=== PATIENT | male | born 1990 | race Caucasian/White ===

== ENCOUNTER 2024-05-04 12:50 | Emergency (ER) | payer OTHER, SELFPAY ==
[2024-05-04 12:53] VITALS: BP 169/100
--- NOTE | 2024-05-04 13:08 | ED.GENMED ---
History of Present Illness
<Liz Johnson PA-C - Last Filed: 05/04/24 21:43>
General
Chief Complaint: Anal/Rectal Problem
Source: patient
Exam Limitations: none
Time Seen by Provider: 05/04/24 13:07
Nursing documentation reviewed up to this point in time: agreed with
History of Present Illness
History of Present Illness:
This is a 34-year-old male with no past medical history who presents emergency department today with concerns of pain near his rectum. Patient reports that this started around a week ago. Patient states that he thought was a hemorrhoid and that
would go away on its own. Patient states that the pain started increasing and he went to urgent care. He describes his symptoms to urgent care but did not examine him and gave him cream for hemorrhoid. Patient denies any rectal bleeding, drainage
from the rectum, any surrounding rashes. Patient denies any fevers or chills, any nausea or vomiting. 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 Patient is a past abdominal surgical history
of appendectomy. He denies abdominal pain today.
Review of Systems
<Liz Johnson PA-C - Last Filed: 05/04/24 21:43>
Review of Systems
All Other Systems: ROS reviewed and negative except as documented in HPI and ROS
Phy Exam
<Liz Johnson PA-C - Last Filed: 05/04/24 21:43>
Physical Exam
Physical Exam:
General: Patient is well appearing and in no acute distress; non-toxic
Skin: Warm and dry, erythema and induration noted to right gluteal fold
Head: Normocephalic, atraumatic
Eyes: Sclera non-icteric. EOMs intact. PERRLA.
Cardiac: Regular rate and rhythm
Pulm: Normal respiratory effort
Abdomen: No abdominal tenderness to palpation
Genitourinary: Perirectal abscess noted at the 9 o'clock position
Neuro: CN II-XII intact, no focal neurologic deficits.
Psychiatric: Appropriate mood and affect.
Course
<Liz Johnson PA-C - Last Filed: 05/04/24 21:43>
Orders/Labs/Results
Orders:
Orders
05/04/24 14:21
Acetaminophen [Tylenol] 1,000 mg PO NOW STA
Vital Signs
Initial and Last Documented VS:
Initial Vital Signs
Temp Pulse Resp BP Pulse Ox
98.3 F 98 16 169/100 98
05/04/24 12:53 05/04/24 12:53 05/04/24 12:53 05/04/24 12:53 05/04/24 12:53
Last Documented Vital Signs
Temp Pulse Resp BP Pulse Ox
98.3 F 95 18 135/100 96
05/04/24 12:53 05/04/24 14:32 05/04/24 14:32 05/04/24 14:32 05/04/24 14:32
<Evans Raza DO - Last Filed: 05/04/24 14:22>
Orders/Labs/Results
Orders:
Orders
05/04/24 14:21
Acetaminophen [Tylenol] 1,000 mg PO NOW STA
Vital Signs
Initial and Last Documented VS:
Initial Vital Signs
Temp Pulse Resp BP Pulse Ox
98.3 F 98 16 169/100 98
05/04/24 12:53 05/04/24 12:53 05/04/24 12:53 05/04/24 12:53 05/04/24 12:53
Last Documented Vital Signs
Temp Pulse Resp BP Pulse Ox
98.3 F 95 18 135/100 96
05/04/24 12:53 05/04/24 14:32 05/04/24 14:32 05/04/24 14:32 05/04/24 14:32
Procedures
<Liz Johnson PA-C - Last Filed: 05/04/24 21:43>
Incision/Drainage/Joint Aspiration
perirectal:
Anethesia: 1% Lidocaine with Epi
Preparation: cleaned with Betadine
Type of procedure: incise and drain
Nature of site: abscess
Description of abscess: greater than 3cm
Loculations broken up: No
How much fluid was obtained?: large amount
Fluid description: purulent
Treatment: left open for drainage
<Liz Johnson PA-C - Last Filed: 05/04/24 21:43>
MDM/Problems Addressed
Differential Diagnosis Includes:
see below
MDM/Problems Addressed:
NUMBER AND COMPLEXITY OF PROBLEMS ADDRESSED AT THE ENCOUNTER
� Chronic conditions affecting care: n/a
� Acute Exacerbation and/or Progression of Chronic Illness: n/a
� Differential Diagnosis includes: perirectal abscess, gluteal abscess, cellulitis, erysipelas
AMOUNT AND/OR COMPLEXITY OF DATA TO BE REVIEWED AND ANALYZED
� I performed an independent evaluation of and my interpretation is: no indication for imaging at this time
Laboratory Studies: no indication for blood work at this time
Other:
� Review of other/old records: no prior ER physician documentation, no prior discharge summaries to review
� Clinical information was obtained by an independent historian: none
� Prescriptions/Medications Considered but not given: n/a
� Further testing considered but not performed: n/a
RISK OF COMPLICATIONS AND/OR MORBIDITY OR MORTALITY OF PATIENT MANAGEMENT
� Social determinants of health affecting care: none
� Discussion with other providers: ER attending
� Escalation of care including admission/observation vs risk of discharge considered:
34-year-old male with no past medical history presents emergency department today with a perirectal abscess. He has no fevers or chills, no nausea or vomiting, he has a soft nontender abdomen. The abscess was incised and drained. There was
surrounding cellulitis around the abscess. Patient was started on Bactrim as well as Keflex to cover for strep and MRSA. Patient stable for discharge. I stressed the importance of following up with colorectal surgery for assessment and discussed
how these can sometimes track deeper. Return precautions discussed with patient.
<Liz Johnson PA-C - Last Filed: 05/04/24 21:43>
*Critical Care Note
Total Time (30-74mins, 75-104mins- exclusive of procedures): Not Applicable
ED Attending Note
<Liz Johnson PA-C - Last Filed: 05/04/24 21:43>
-
Portions of this chart may have been created with voice recognition software.� Occasional wrong word or��sound alike� substitutions may have occurred due to the inherent limitations of voice recognition software.
<Evans Raza DO - Last Filed: 05/04/24 14:22>
ED Attending Note
Patient seen and examined by attending physician: Yes
I performed the substantive portion of visit, reviewed & personally made and approve the management plan that is documented in note by myself or CAROL.: Yes
ED Attending Note:
I have seen and evaluated the patient with a [id number] encounter. I have spoken to the advance practicer provider and involved in the medical history, the physical exam, medical decision making.
Evaluation and management service: agree unless noted differently below.
Results interpretation: agree unless noted differently below.
Focused HPI: 34-year-old male presenting with left buttock pain. Denies fevers.
Physical exam: Patient has perirectal abscess. it does come to ahead just superior to the rectum along the right gluteal fold
Medical Decision Making: Will I&D and start antibiotics.
Discharge Plan
Departure
Patient Disposition: Home (Routine Discharge)
Date of Disposition: 05/04/24
Time of Disposition: 14:21
Patient with high blood pressure during this ER visit?: Yes
Condition: Good
Discharge Problem:
Perirectal abscess
Instructions: Anal abscess and fistula - Discharge instructions, BLOOD PRESSURE
Prescriptions:
New
sulfamethoxazole-trimethoprim [Bactrim DS] 800-160 mg tablet
1 tab PO BID 5 Days Qty: 10 0RF
cephalexin 500 mg capsule
500 mg PO TID 5 Days Qty: 15 0RF
Referrals:
Jovanni Santos MD [Active] - Call in 1-3 days for appt
UNKNOWN - PT DOES,NOT KNOW [Family Provider] -
Activity Restrictions/Additional Instructions:
Antibiotics have been sent to your pharmacy:
Keflex�please take 1 tablet 3 times daily for 5 days.
Bactrim DS- please take 1 tablet 2 times daily for 5 days.
You can alternate Tylenol and Motrin for pain. Also recommend taking a stool softener. The wound was left open so that it can continue to drain. You can change the dressing intermittently as needed with nonadherent padding.

Please call to make a follow up appointment with colorectal. Please say that you were seen in the emergency department for colorectal abscess and had it drained.
PLEASE RETURN EMERGENCY DEPARTMENT SHOULD YOU DEVELOP CHEST PAIN, SHORTNESS OF BREATH, SYNCOPAL EPISODES, ABDOMINAL PAIN, FEVERS GREATER THAN OR EQUAL TO 100.4 F, OR ANY OTHER SIGNS OR SYMPTOMS CONCERNING TO YOU.
Interventions
Interventions:
*Risk Screen - Suicide Last Done: 05/04/24 12:53
*General Assessment Last Done: 05/04/24 14:32
*Neglect/Abuse Screening Last Done: 05/04/24 12:53
ED- Fall Risk Assessment Last Done: 05/04/24 14:47
*ED COVID-19 Vaccine History Last Done: 05/04/24 14:32
*Nursing Disposition Last Done: 05/04/24 14:47
ED-Skin Assessment Last Done: 05/04/24 14:04
Discharge Date and Time
Discharge Date/Time: 05/04/24 14:47
Print Language: TELUGU
[2024-05-04 14:32] VITALS: BP 135/100
[2024-05-04] MEDS: TYLENOL 1000 MG PO (14:32)
== END 2024-05-04 14:47 | disposition home or self-care (01) ==
LOC: EMR 12:50
PROVIDERS: EMERGENCY PHYSICIAN Student in an Organized Health Care Education/Training Program
DX: K61.1 Rectal abscess (principal); Z90.49 Acquired absence of other specified parts of digestive tract
CPT/HCPCS: 99282; 10060